=== PATIENT | female | born 1985 | race Caucasian/White ===

== ENCOUNTER → 2018-08-13 | Outpatient (CLI) | payer OTHER ==
[~2018-08-13] MED LIST: ACET325 PO; ALBIPROI INH; AMPDEX5; AMPDEX5 PO; CEPH500 PO; CLAR500 PO; CODACE30; CODBUTASA; DIPATR PO; HYDGUAL120 PO; Humulin N100 UNIT/1 SQ; IBUP800 PO; LABE100 PO; MEDR150I; OXYACE5T PO; PRED10 PO; PROM25 PO; RXOXYACE PO; SULTRIDS; SULTRIDS PO; SUMA25; VENL37.5ER; Verotin-Gr Cap1 EACH; Zithromax250 MG PO
== END ==
LOC: LAB SHORT 12:35 → LAB EV 12:35
DX: R51 Headache (principal)
CPT/HCPCS: G0480

== ENCOUNTER → 2021-10-07 | Outpatient (CLI) | payer OTHER ==
[2021-10-16 05:09] LABS: 6-ACETYLMORPHINE Not Detected (.)
== END | disposition home or self-care (01) ==
LOC: LAB 15:21 → LAB SHORT 15:21
PROVIDERS: Family Medicine
DX: Z51.81 Encounter for therapeutic drug level monitoring (principal); Z79.899 Other long term (current) drug therapy
CPT/HCPCS: G0480

== ENCOUNTER → 2024-01-11 | Outpatient (CLI) | payer OTHER | LOC: LAB SHORT 15:18 → LAB 15:18 | DX: J02.9 Acute pharyngitis, unspecified (principal) | CPT/HCPCS: 87081 ==

== ENCOUNTER 2025-05-28 07:24 | Observation (INO) | payer OTHER ==
[~2025-05-28] VITALS: Ht 165.1 cm; Wt 99.8 kg
[2025-05-28] VITALS (11 sets, daily range): BP systolic 117–163; BP diastolic 53–102
[2025-05-28 12:06] LABS: BASOPHILS ABSOLUTE AUTO 0.06 K/mm3 (0.00-0.23); BASOPHILS PERCENT AUTO 0 % (0-2); EOSINOPHILS ABSOLUTE AUTO 0.09 K/mm3 (0.00-0.68); EOSINOPHILS PERCENT AUTO 1 % (0-6); Hematocrit 47.5 % (33.0-51.0); Hemoglobin 16.4 g/dL (11.5-16.0); IMMATURE GRAN ABSOLUTE AUTO 0.09 K/mm3 (0.00-0.10); IMMATURE GRAN PERCENT AUTO 1 % (0-1); LYMPHOCYTES ABSOLUTE AUTO 2.26 K/mm3 (0.84-5.20); LYMPHOCYTES PERCENT AUTO 15 % (21-46); MONOCYTES ABSOLUTE AUTO 0.94 K/mm3 (0.16-1.47); MONOCYTES PERCENT AUTO 6 % (4-13); Mean Corpuscular HGB Conc 34.5 g/dL (31.5-36.5); Mean Corpuscular Volume 86 fL (80-100); NEUTROPHILS ABSOLUTE AUTO 11.42 K/mm3 (1.96-9.15); NEUTROPHILS PERCENT AUTO 77 % (41-73); NRBC ABSOLUTE 0.00 K/mm3 (0.00-0.02); NRBC Auto 0.0 /100 WBC (0.0-0.2); Platelet Count 275 K/mm3 (150-400); RDW Coefficient Variation 12.1 % (11.7-14.2); RDW Standard Deviation 38.1 fL (35.1-46.3)
[2025-05-28 12:12] LABS: Alanine Aminotransfer (ALT/SGP 26.0 U/L (12-78); Albumin, Blood 3.5 g/dL (3.4-5.0); Albumin/Globulin Ratio 0.8 (0.8-1.8); Anion Gap 9.0 mmol/L (3-11); Aspartate Aminotrans (AST/SGOT 37.0 U/L (12-37); Bilirubin, Total 0.5 mg/dL (0.1-1.0); Blood Urea Nitrogen 11.0 mg/dL (8-24); CO2, Blood 26.0 mmol/L (21-32); Calcium, Blood 8.9 mg/dL (8.5-10.1); Chloride, Blood 103.0 mmol/L (98-108); Creatinine, Blood 0.77 mg/dL (0.40-1.00); Globulin, Blood 4.3 g/dL (2.2-4.0); Glucose, Blood 96.0 mg/dL (70-99); Potassium, Blood 4.0 mmol/L (3.5-5.5); Sodium, Blood 134.0 mmol/L (136-145); Total Protein, Blood 7.8 g/dL (6.4-8.2)
[2025-05-28] MEDS ORDERED: Ciprofloxacin 400MG/D5 200ML 200 ML IV ONE (13:40)
[2025-05-28] MEDS ORDERED: MetroNIDAZOLE 500MG/NS 100 ml 100 ML IV ONE (13:40)
--- NOTE | 2025-05-28 18:17 | NUR ---
Ambulatory in Day SurgeryLungs clear T/O to Auscultation. Patient confirms NPO status and agrees with scheduled surgery. Pre-Op teaching done. Pt verbalizes understanding. SCD'S IN PLACE, GOWN, RECENT VOID, IV RAC INTACT WARM LR TKO, SURGICAL HAT, SOCKS, VSS
[2025-05-28] MEDS ORDERED: Bupivacaine 0.5% HCl 5 MG/ML 30MLVIAL ONE (19:07)
[2025-05-28] MEDS ORDERED: FentaNYL Citrate 50 MCG/ML 2 ML Injection ONE (19:20)
[2025-05-28] MEDS ORDERED: Ondansetron HCl 2 MG / ML 2ML Vial ONE (19:26)
[2025-05-28] MEDS ORDERED: Metoclopramide HCl 5MG / ML 2ML Vial ONE (19:26)
[2025-05-28] MEDS ORDERED: Dexamethasone Sod Phos 10 MG/ML 1ML VIAL ONE (19:26)
[2025-05-28] MEDS ORDERED: ePHEDrine Sulfate 50 MG/ML 1ML Injection IV PRN (19:35)
[2025-05-28] MEDS ORDERED: Albuterol 2.5 MG/3 ML VIAL INH PRN (19:35)
[2025-05-28] MEDS ORDERED: FentaNYL Citrate 50 MCG/ML 2 ML Injection IV PRN ×2 (19:40)
[2025-05-28] MEDS ORDERED: Ondansetron HCl 2 MG / ML 2ML Vial IV PRN (19:40)
[2025-05-28] MEDS ORDERED: HYDROmorphone HCl/Pf 1MG SYR IV PRN ×2 (19:40)
[2025-05-28] MEDS ORDERED: Ketorolac Tromethamine 30mg Vial ONE (20:10)
[2025-05-28] MEDS ORDERED: Sugammadex Sodium 200 MG/2ML SDV (100 MG/ML) ONE (20:11)
[2025-05-28] MEDS ORDERED: Prochlorperazine Edisylate 10 mg Vial IV PRN (20:35)
[2025-05-28] MEDS ORDERED: FLU VACC TS2025-26(6MOS UP)/PF 45 MCG/0.5 ML SYRINGE IM SCH (20:35)
--- NOTE | 2025-05-28 20:36 | NUR ---
RECOVERY: PT BACK TO ICU 16 VIA [facility]. MD AND RN AT BEDSIDE. PT AWAKE AND ALERT ABLE TO ANSWER QUESTIONS APPROPRIATELY. DENIES ANY APIN AT THIS TIME, BUT DOES STATE SHE HAS A COUGH. EDUCATED PT TO COUGH WHEN NEEDED
[2025-05-29 00:29] VITALS: BP 146/96
[2025-05-29 04:27] VITALS: BP 137/91
--- NOTE | 2025-05-29 04:57 | NUR ---
SHIFT SUMMARY KRISTIN WAS A/0 X4 ON RETURN FROM PACU. PT PAIN WELL MANAGED. DENIES NAUSEA, CHEST PAIN, SOB. LAP SITES C/D/I. PT ABLE TO AMBULATE WELL AND VOID APPROPRIATELY. PT ALREADY PASSING FLATUS. NO ACUTE EVENT OR NOTED CHANGES TO PT CONDITION.
[2025-05-29 07:20] VITALS: BP 139/91
--- NOTE | 2025-05-29 08:32 | NUR ---
DISCHARGE PT EDUCATED ON AND RECEIVED PRINTED DISCHARGE INSTRUCTIONS AND VERBALIZED AN UNDERSTANDING. HARD RX FOR OXYCODONE GIVEN TO PT. IV DC'D. PT REPORTS SHE PLANS TO INDEPENDENTLY GET DRESSED, GATHER PERSONAL BELONGINGS, AND CALL HER SPOUSE FOR A RIDE HOME. PRIMARY RN NOTIFIED.
--- NOTE | 2025-05-29 09:00 | NUR ---
Pt up to bathroom indep, a/ox4, pleasant and cooperative with care, follows commands well, reports 5/10 pain, but declines pain meds at this time, lungs are clear t/o, resp even and unlabored, no cough noted, hrr, no edema noted, ppp+2, cap refill<3 sec, vs stable, afebrile, piv site is clear and patent, btx4 abd flat soft nontender, voids without diff, skin has surgical wounds to left side of abd, slight bruising around sites, otherwise c/w/i, betsey, praveen, call light in reach.
[2025-05-29] MEDS ORDERED: Enoxaparin 40 MG/0.4 ML SYR SC SCH (10:00)
--- NOTE | 2025-05-29 11:01 | NUR ---
pt has been discharged to home, charge nurse went over paper work with her, and gave her hard script for pain meds, she verbalized understanding, piv removed intact, left via wheelchair with model and mold maker plaster in attendence with all of her belongings.
== END 2025-05-29 11:02 | disposition home or self-care (01) ==
LOC: ER 07:24 → SURS 07:25
PROVIDERS: Emergency Medicine; ADMIT Student in an Organized Health Care Education/Training Program
PROC: 0DTJ4ZZ Resection of Appendix, Percutaneous Endoscopic Approach (ICD-10-PCS; principal; 2025-05-28 10:45)
DX: K35.30 Acute appendicitis with localized peritonitis, without perforation or gangrene (principal); F90.9 Attention-deficit hyperactivity disorder, unspecified type; F17.210 Nicotine dependence, cigarettes, uncomplicated; E66.9 Obesity, unspecified; Z68.36 Body mass index [BMI] 36.0-36.9, adult; Z79.899 Other long term (current) drug therapy; Z88.0 Allergy status to penicillin; Z88.8 Allergy status to other drugs, medicaments and biological substances
CPT/HCPCS: 74177; 80053; 85025; 88304; 94760; 96365-59; 96368; 99285-25; A9270; G0378; J0744; J1100; J1885; J2405; J2704; J2765; J3010; Q9967